=== PATIENT | male | born 1965 | race Caucasian/White ===

== ENCOUNTER 2023-05-27 18:54 | Emergency (ER) | payer BC, SELFPAY ==
--- NOTE | ~2023-05-27 | XR_ITS ---
EXAMINATION: XR chest 2V DATE: 05/27/2023 19:20 INDICATION: Dizziness and nausea TECHNIQUE: Frontal and lateral views of the chest are obtained COMPARISON: 10/31/2008 FINDINGS: The lungs are free of acute opacities. No pleural effusion or pneumothorax. The cardiomedia stinal silhouette is normal. There is moderate thoracic spondylosis. IMPRESSION: 1. No acute cardiopulmonary abnormality. Reviewed, dictated and finalized at location F. TERY WARDEN
--- NOTE | ~2023-05-27 | CT_ITS ---
EXAMINATION: CT brain wo con INDICATION: Vertigo, nausea and vomiting COMPARISON: None TECHNIQUE: Standard unenhanced head CT. The dose-length product (DLP) was 681.00 mGy-cm. The mA was a djusted according to patient size. Iterative reconstruction technique was employed. FINDINGS: No intracranial hemorrhage, acute infarction, or abnormal mass lesion. The ventricles are n ormal. No abnormal mass effect or midline shift. The bates-white matter differentiation is normal. The basal cisterns are patent. The orbits are normal. The paranasal sinuses, mastoids and calvarium are normal. IMPRESSION: 1. No acute intracranial abnormality. Reviewed, dictated and finalized at location F. PATIONAL HEALTH PHYSIOTHERAPIST
[2023-05-27 18:55] VITALS: BP 151/98; PULSE 100; RESP 16; TEMP 36.6; O2SAT 98
--- NOTE | 2023-05-27 19:05 | ECG_ITS ---
Measurements Intervals [place] Rate: 97 P: 28 [place]: 156 QRS: 40 QRSD: 95 T: 16 QT: 329 QTc: 419 Interpretive Statements SINUS RHYTHM MINIMAL Q WAVES- INFERIOR LEADS NONSPECIFIC ST & T-WAVE ABNORMALITY- INFERIOR LEADS BORDERLINE ECG NO PREVIOUS ECG AVAILABLE FOR COMPARISON Electronically Signed On 05-27-2023 19:29:58 [employer] by Jaciel Perry D.O.
[2023-05-27 20:34] LABS: Basophils Absolute Auto 0.1 K/mm3 (0.0-0.1); Basophils Percent Auto 0.4 % (0.2-1.2); Hematocrit 52.9 % (42.0-52.0); Immature Granulocyte Absolute 0.07 K/mm3 (0.00-0.031); Immature Granulocyte Percent A 0.4 % (0-0.5); Lymphocytes Percent Auto 5.5 % (18.3-44.2); Mean Corpuscular Hemoglobin 29.6 pg (26-34); Mean Platelet Volume 10.7 fl (7.4-10.4); Monocytes Absolute Auto 0.6 K/mm3 (0.1-0.6); Monocytes Percent Auto 3.4 % (2.6-8.5); Neutrophils Absolute Auto 14.9 K/mm3 (1.3-6.7); Neutrophils Percent Auto 90.3 % (45.5-73.1); Platelet Count Result 267 k/mm3 (150-375); Red Blood Count 6.08 M/mm3 (4.6-6.20); Red Cell Distribution Width 13.9 % (11.5-14.5); White Blood Count 16.5 K/mm3 (4.5-10.0)
[2023-05-27 20:45] LABS: Prothrombin Time 13.7 Seconds (11.1-14.7)
[2023-05-27 20:46] LABS: Alanine Aminotransferase 29 U/L (6-50); Albumin Level 4.5 g/dL (3.5-5.1); Alkaline Phosphatase 61 U/L (38-126); Anion Gap 12 mmol/L (8-16); Aspartate Amino Transferase 30 U/L (17-59); Bilirubin,Total 0.9 mg/dL (0.2-1.3); Blood Urea Nitrogen 20 mg/dL (9-20); Calcium 9.3 mg/dL (8.4-10.2); Carbon Dioxide 24 mmol/L (22-30); Chloride 101 mmol/L (98-107); Estimated CRCL calculation 103 ml/min; Estimated Glomerular Filt Rate > 60; Glucose 144 mg/dL (65-110); Lipase 59 U/L (23-300); Sodium 137 mmol/L (137-145)
[2023-05-27 20:47] LABS: Partial Thromboplastin Time 27.7 SECONDS (22.3-36.8)
[2023-05-27 20:57] LABS: Troponin I < 0.012 ng/mL (0.000-0.034)
--- NOTE | 2023-05-27 22:21 | ED.DIZZY ---
HPI - Dizziness General Chief Complaint: Dizziness Stated Complaint: DIZZINESS,N/V Time Seen by Provider: 05/27/23 21:46 Source: patient Mode of arrival: ambulatory Limitations: no limitations History of Present Illness HPI Narrative: Patient is a 58 y/o male who presents to the ED with c/o dizziness. Patient reports he woke up this morning with dizziness. He went to work, but dizziness persisted. Worse with any type of movement, walking/standing. Initially felt like room spinning/motion sickness. He reported having nausea and vomiting associated with dizziness. Reported multiple episodes of emesis. He left work and rested at home, but continued to have further dizziness, states it was more mild in the afternoon, more like a lightheadedness. He went to [facility] was referred here for cardiac evaluation. Patient states dizziness is improved currently laying in the ED bed. He denies chest pain or shortness breath. Denies vision changes, headache, focal weakness or numbness, abdominal pain, slurred speech, confusion, ear pain, new tinnitus. Related Data Home Medications Medication Instructions Recorded Confirmed cetirizine 10 mg capsule (Zyrtec) 10 mg PO DAILY PRN 08/30/22 12/12/22 fluticasone propionate 50 1 spray intranasal DAILY 08/30/22 12/12/22 mcg/actuation nasal spray,suspension (Flonase Allergy Relief) Allergies Allergy/AdvReac Type Severity Reaction Status Date / Time No Known Allergies Allergy Unknown Verified 08/30/22 15:35 Review of Systems Review of Systems: CONSTITUTIONAL: Denies fever, chills, or sweats. CARDIOVASCULAR: Denies chest pain. RESPIRATORY: Denies dyspnea. GASTROINTESTINAL: See HPI. NEUROLOGIC: See HPI. All systems reviewed & are unremarkable except as noted in HPI and below PMFSH Past Medical History Medical History BMI 39.0-39.9,adult Family History Family History Father Diabetes mellitus Social History Social History Smoking status: Never smoker Alcohol intake: current Drinks per week: 6 Substance use: never Substance use type: does not use Exam Narrative: GENERAL: Well appearing, obese with BMI of 39.5, non-toxic, in no acute distress. HEAD: Normocephalic, atraumatic. EYES: PERRL/EOMI, conjunctivae clear bilaterally. Mild fatiguable nystagmus when looking to the left. ENT: TMs clear bilaterally. No significant erythema or bulging. No cerumen impaction. NECK: Supple. No meningeal signs. RESPIRATORY: Airway patent, respirations nonlabored. Clear to auscultation bilaterally, no rales, rhonchi, wheezing. CARDIOVASCULAR: Regular rate and rhythm without murmurs, rubs, or gallops. Radial pulses 2+ and equal bilaterally. ABDOMINAL: Soft, no tenderness throughout abdomen, nondistended. Normoactive BS. MUSCULOSKELETAL: Moves all extremities. No gross deformities. SKIN: Warm, dry, normal color. No rashes. NEURO: A&O X3. Speech clear. Follows commands. CN II-XII intact. Sensation grossly intact. Steady gait. No ataxic movements. Strength 5/5 in upper and lower extremities bilaterally. Ivxt-ln-[id number] and iauulx-wv-csoo testing intact bilaterally. No pronator drift. Equal occupational therapy instructor strength bilaterally. PSYCHIATRIC: Appropriate mood and affect. Normal interaction. Course Vital Signs Vital signs: Vital Signs Temperature 97.8 F 05/27/23 18:55 Pulse Rate 100 05/27/23 18:55 Respiratory Rate 16 05/27/23 18:55 Blood Pressure 151/98 H 05/27/23 18:55 Pulse Oximetry 98 05/27/23 18:55 Oxygen Delivery Room Air 05/27/23 18:55 Temperature 97.8 F 05/27/23 18:55 Pulse Rate 88 05/28/23 00:22 Respiratory Rate 15 05/28/23 00:22 Blood Pressure 154/75 H 05/28/23 00:22 Pulse Oximetry 98 05/28/23 00:22 Oxygen Delivery Room Air 05/27/23 18:55 MDM
[2023-05-27] MEDS: ONDANSETRON INJ 4 MG/2 ML VIAL IV PUSH (22:46)
[2023-05-27] MEDS: SODIUM CHLORIDE 0.9% IV 1,000 ML 999 ML IV CONT ×2 (22:46→22:47)
[2023-05-27] MEDS: MECLIZINE HCL 25 MG TABLET PO (22:46)
--- NOTE | 2023-05-27 22:47 | ECG_ITS ---
Measurements Intervals [place] Rate: 92 P: 40 [place]: 172 QRS: 46 QRSD: 92 T: 16 QT: 337 QTc: 418 Interpretive Statements SINUS RHYTHM NONSPECIFIC ST & T-WAVE ABNORMALITY- INFERIOR LEADS BASELINE ARTIFACT- I, II, V4-V6 BORDERLINE ECG COMPARED TO ECG 05/27/2023 19:08:05 NO SIGNIFICANT CHANGES Electronically Signed On 05-28-2023 6:40:47 [employer]OUNT MANAGER [employer]IEF by Jaciel Perry D.O.
[2023-05-27 23:08] LABS: Magnesium 1.9 mg/dL (1.6-2.3)
[2023-05-27 23:11] LABS: Hemoglobin A1C 6.2 % (<5.7)
[2023-05-27 23:20] LABS: Troponin I < 0.012 ng/mL (0.000-0.034)
[2023-05-27 23:42] LABS: Appearance Urine Clear (Clear); Bacteria Urine None Seen /hpf; Bilirubin Urine Negative (Negative); Blood Urine Negative (Negative); Color Urine Yellow (Yellow); Glucose Urine UA Negative (Negative); Ketones Urine 1+ mg/dL (Negative); Leukocyte Esterase Ur Negative LEU/UL (Negative); Nitrate Urine Negative (Negative); Protein Urine 1+ mg/dL (Negative); RBC Urine 0-2 /hpf (0-2); Specific Grav Ur 1.035 (1.001-1.035); Squamous Epithelial Cell Urine None seen /hpf (Few); Urobilinogen Urine 0.2 mg/dL (<2.0); WBC Urine 0-5 /hpf; pH Urine 5.5 (5.0-9.0)
[2023-05-27 23:45] LABS: Add Urine Microscopic? YES
[2023-05-28 00:22] VITALS: BP 154/75; PULSE 88; RESP 15; O2SAT 98
== END 2023-05-28 00:23 | disposition home or self-care (01) ==
PROVIDERS: Emergency Medicine; Emergency Provider Physician Assistant; PCP Family Medicine
DX: H81.10 Benign paroxysmal vertigo, unspecified ear (principal); R11.2 Nausea with vomiting, unspecified; R94.31 Abnormal electrocardiogram [ECG] [EKG]
CPT/HCPCS: 36415; 70450; 71046; 80053; 81001; 81003; 83036; 83690; 83735; 84484; 85025; 85610; 85730; 93005; 96361; 96374; 99284; A9270; J2405; J7030

== ENCOUNTER 2024-04-27 12:03 | Outpatient (CLI) | payer BC, SELFPAY ==
--- NOTE | ~2024-04-27 | XR_ITS ---
EXAMINATION: XR chest 2V 04/27/2024 12:20 INDICATION: Status post fall downstairs. PROCEDURE: 2 view chest COMPARISON: 05/27/2023 FINDINGS: The lungs are clear. The cardiomediastinal silhouette is within normal limits. There are no pleural effusions. There is no pneumothorax suspected. IMPRESSION: 1: NO ACUTE CARDIOPULMONARY DISEASE. Reviewed, dictated and finalized at location B. UP ARTISTRY INSTRUCTOR
== END 2024-04-27 12:04 | disposition home or self-care (01) ==
LOC: ANHIMG 12:09
PROVIDERS: PCP Family Medicine
DX: R07.81 Pleurodynia (principal)
CPT/HCPCS: 71046